=== PATIENT | male | born 1995 | race Two or more races ===

== ENCOUNTER 2022-03-01 11:08 | Emergency (ER) | payer OTHER, SELFPAY ==
[2022-03-01 11:12] VITALS: BP 146/75; PULSE 99; RESP 20; TEMP 36.6; O2SAT 100
--- NOTE | 2022-03-01 12:24 | ED.ALLEREA ---
HPI - Allergic Reaction General Chief complaint: Allergic Reaction Stated complaint: rash to arms and face Time Seen by Provider: 03/01/22 12:05 Source: patient Mode of arrival: ambulatory Limitations: no limitations History of Present Illness HPI narrative: Patient is 26 years old male presents with skin rash on the face and at the back of the elbow bilaterally started 2 weeks ago. Been seen by his family physician numerous times, was given antibiotic without any improvement. Patient reports slight itching and burning sensation. Patient denies having similar symptoms in the past. He denies any fever, chills, nausea, vomiting or exposure to anything unusual. Patient works outdoors. Related Data Home Medications Medication Instructions Recorded Confirmed sulfamethoxazole-trimethoprim 800 BID 03/01/22 Allergies Allergy/AdvReac Type Severity Reaction Status Date / Time No Known Allergies Allergy Verified 03/01/22 11:19 Review of Systems Review of Systems: CONSTITUTIONAL: Denies fever, chills, or sweats. EYES: Denies visual changes, redness, or discharge. ENT: Denies rhinorrhea, congestion, sore throat, or otalgia. CARDIOVASCULAR: Denies chest pain, palpitations, or edema. RESPIRATORY: Denies cough or dyspnea. GASTROINTESTINAL: Denies abdominal pain, nausea, vomiting, or diarrhea. GENITOURINARY: Denies dysuria or hematuria. SKIN: Denies rash or itching. MUSCULOSKELETAL: Denies back pain, joint pain, or myalgia. NEUROLOGIC: Denies headache, numbness, or weakness. PSYCHIATRIC: Denies anxiety or depression. Exam Narrative: General appearance: Well-developed, well-nourished Skin: Papular, pustular rash, butterfly shape on the face, and at the back of the elbow bilaterally Head: Normocephalic, nontraumatic Eyes: Clear conjunctiva ENT: Oropharynx normal, ears normal, nose normal Neck: Supple, nontender Chest and respiratory: Airway patent, no respiratory distress, no accessory muscle use Heart: Regular rate/rhythm Abdomen: Soft, nontender, no organomegaly, quiet bowel sounds Vascular: Normal peripheral pulses, normal capillary refill. Musculoskeletal: Normal range of motion, nontender back Neurologic: Alert and oriented ?3, [employer] is normal as tested, no gross motor deficit Course Course Emergency Course: Stable Vital Signs Vital signs: Vital Signs Temperature 36.6 C 03/01/22 11:12 Pulse Rate 99 03/01/22 11:12 Respiratory Rate 20 03/01/22 11:12 Blood Pressure 146/75 H 03/01/22 11:12 Pulse Oximetry 100 03/01/22 11:12 Temperature 36.6 C 03/01/22 11:12 Pulse Rate 99 03/01/22 11:12 Respiratory Rate 20 03/01/22 11:12 Blood Pressure 146/75 H 03/01/22 11:12 Pulse Oximetry 100 03/01/22 11:12 MDM - Allergic Reaction MDM Narrative Medical decision making narrative: Acne rosacea, psoriasis, versus allergic reaction is my concern. My plan to discharge patient on metronidazole gel, doxycycline and prednisone. And to call Dr. Mcnair for appointment Differential Diagnosis Differential diagnosis: Likely allergic reaction and other (Rosacea, psoriasis) Critical Care Time Critical Care Time Critical Care Time: No Discharge Plan Discharge Clinical Impression: Acne rosacea Allergic reaction Qualifiers: Encounter type: initial encounter Qualified Code(s): T78.40XA - Allergy, unspecified, initial encounter Patient Disposition: Home, Self-Care Condition: Stable Instructions: Antibiotic Form, Dermatitis (ED) Additional Instructions: Return if symptoms are worsening , call your family physician/rn coronary care unit for appointment, take Tylenol as as needed for aches and pain, continue home medications. Pre
== END 2022-03-01 13:01 | disposition home or self-care (01) ==
PROVIDERS: Emergency Provider Emergency Medicine; PCP Internal Medicine
DX: L71.9 Rosacea, unspecified (principal); T78.40XA Allergy, unspecified, initial encounter
CPT/HCPCS: 99283

== ENCOUNTER 2022-08-10 06:06 | Emergency (ER) | payer OTHER, SELFPAY ==
--- NOTE | ~2022-08-10 | CT_ITS ---
EXAMINATION: CT abdomen pelvis w con DATE: 08/10/2022 07:35 INDICATION: Lower abdominal pain, vomiting and diarrhea TECHNIQUE: Computed tomography (CT) of the abdomen and pelvis was performed without intravenous contr ast. The dose-length product was 322.49 mGy-cm. Automated exposure control and iterative reconstructi on technique were employed. COMPARISON: CT dated 02/10/2011. FINDINGS: Lung bases are unremarkable. Heart size normal. The liver, spleen, pancreas, adrenal glands and kidneys are unremarkable. Gallbladder is present. No significant vascular abnormality. There is retroaortic left renal vein. Gallbladder is present. No free air or free fluid. There are mildly thic kened proximal small bowel loops, suspicious for enteritis. No lymphadenopathy. No aneurysm. No evide nce for hernia. There is a small sclerotic lesion in the proximal aspect of the right femur, likely b [place]. Mild lumbar spondylosis. IMPRESSION: 1. Mildly thickened proximal small bowel loops, suspicious for enteritis. Reviewed, dictated and finalized at location B.
[2022-08-10 06:07] VITALS: BP 155/79; PULSE 63; RESP 18; TEMP 36.2; O2SAT 99
[2022-08-10 07:02] LABS: Basophils Percent Auto 0.3 % (0.2-1.2); Eosinophils Absolute Auto 0.1 K/mm3 (0-0.3); Eosinophils Percent Auto 0.9 % (0-4.4); Hemoglobin 14.2 g/dL (14.0-18.0); Immature Granulocyte Absolute 0.01 K/mm3 (0.00-0.031); Immature Granulocyte Percent A 0.2 % (0-0.5); Lymphocytes Absolute Auto 1.55 K/mm3 (0.9-3.2); Lymphocytes Percent Auto 26.5 % (18.3-44.2); Mean Corpuscular Volume 81.7 fl (80-100); Mean Platelet Volume 10.8 fl (7.4-10.4); Monocytes Absolute Auto 0.6 K/mm3 (0.1-0.6); Monocytes Percent Auto 9.4 % (2.6-8.5); Neutrophils Absolute Auto 3.7 K/mm3 (1.3-6.7); Neutrophils Percent Auto 62.7 % (45.5-73.1); Platelet Count Result 204 k/mm3 (150-375); Red Blood Count 5.26 M/mm3 (4.6-6.20); Red Cell Distribution Width 14.1 % (11.5-14.5); White Blood Count 5.9 K/mm3 (4.5-10.0)
[2022-08-10 07:13] LABS: Alanine Aminotransferase 29 U/L (6-50); Albumin Level 4.8 g/dL (3.5-5.1); Alkaline Phosphatase 61 U/L (38-126); Anion Gap 9 mmol/L (8-16); Aspartate Amino Transferase 23 U/L (17-59); Bilirubin,Total 0.4 mg/dL (0.2-1.3); Blood Urea Nitrogen 17 mg/dL (9-20); Calcium 9.1 mg/dL (8.4-10.2); Carbon Dioxide 28 mmol/L (22-30); Chloride 103 mmol/L (98-107); Estimated CRCL calculation 103 ml/min; Estimated Glomerular Filt Rate > 60; Glucose 102 mg/dL (65-110); Potassium 3.7 mmol/L (3.4-5.0); Sodium 140 mmol/L (137-145)
[2022-08-10 07:14] LABS: Lactic Acid Reflex 0.9 mmol/L (0.7-2.0)
--- NOTE | 2022-08-10 07:17 | ED.ABDPAIN ---
HPI - Abdominal Pain General Chief Complaint: Abdominal Pain Stated Complaint: abd pain Time Seen by Provider: 08/10/22 07:01 History of Present Illness HPI narrative: Pt presents with crampy lower abdominal pain and diarrhea for three days. Pt did have vomiting at first but this has improved but the diarrhea has persisted. Pt denies fever or recent antibiotic usage or camping trips. Pt has some blood on tissue but thinks it is from excessive wiping. Pt was up all night due to pain and frequent trips to bathroom. Related Data Home Medications Medication Instructions Recorded Confirmed sulfamethoxazole 800 800 BID 03/01/22 mg-trimethoprim 160 mg tablet Allergies Allergy/AdvReac Type Severity Reaction Status Date / Time No Known Allergies Allergy Verified 08/10/22 08:38 Review of Systems Review of Systems: All systems reviewed & are unremarkable except as noted in HPI and below PMFSH Family History Family History (System 08/10/22 @ 08:38 by Beverley Wolf) Other Diabetes mellitus Family history of elevated blood lipids Hypertension Social History Social History (System 08/10/22 @ 08:38 by Beverley Wolf) Smoking status: Never smoker Exam Const: General: healthy appearing Nutritional Appearance: well nourished Orientation/consciousness: patient oriented x3 Limitations: no limitations HENMT: Mouth: Yes moist mucous membranes Eyes: Conjunctivae: conjunctivae normal EOM: EOMs intact bilaterally Resp: Effort & Inspection: normal respiratory effort Auscultation: clear to auscultation bilaterally Cardio: Rate: regular rate Rhythm: regular rhythm GI: GI Palp: Yes Soft to palpation and Yes Tenderness to palpation present (GI) (mild lower abdominal tenderness) Auscultation: normal bowel sounds Skin: General skin exam: normal color Rashes: no rashes Wounds: no wounds Neuro: General: patient oriented x3, moves all extremities and no focal motor deficits Cranial nerves: Yes Nystagmus not present Speech: normal speech Extrem: General: normal to inspection and no clubbing, cyanosis or edema Psych: Mental Status: mental status grossly normal Affect: normal affect Attitude: cooperative Course Vital Signs Vital signs: Vital Signs Temperature 97.2 F L 08/10/22 06:07 Pulse Rate 63 08/10/22 06:07 Respiratory Rate 18 08/10/22 06:07 Blood Pressure 155/79 H 08/10/22 06:07 Pulse Oximetry 99 08/10/22 06:07 Oxygen Delivery Room Air 08/10/22 06:07 Temperature 97.2 F L 08/10/22 06:07 Pulse Rate 58 L 08/10/22 08:30 Respiratory Rate 16 08/10/22 08:30 Blood Pressure 148/81 H 08/10/22 08:30 Pulse Oximetry 99 08/10/22 06:07 Oxygen Delivery Room Air 08/10/22 06:07 MDM - Abdominal Pain Lab Data Result diagrams: 08/10/22 06:33 08/10/22 06:32 Labs: Lab Results 08/10/22 08/10/22 08/10/22 Range/Units 06:32 06:33 06:33 WBC 5.9 (4.5-10.0) K/mm3 RBC 5.26 (4.6-6.20) M/mm3 Hgb 14.2 (14.0-18.0) g/dL Hct 43.0 (42.0-52.0) % MCV 81.7 (80-100) fl MCH 27.0 (26-34) pg MCHC 33.0 (32-36) g/dl RDW 14.1 (11.5-14.5) % Plt Count 204 (150-375) k/mm3 MPV 10.8 H (7.4-10.4) fl Immature Gran % (Auto) 0.2 (0-0.5) % Neut % (Auto) 62.7 (45.5-73.1) % Lymph % (Auto) 26.5 (18.3-44.2) % Mccracken % (Auto) 9.4 H (2.6-8.5) % Eos % (Auto) 0.9 (0-4.4) % Baso % (Auto) 0.3 (0.2-1.2) % Lymph # (Auto) 1.55 (0.9-3.2) K/mm3 Mccracken # (Auto) 0.6 (0.1-0.6) K/mm3 Eos # (Auto) 0.1 (0-0.3) K/mm3 Baso # (Auto) 0.0 (0.0-0.1) K/mm3 Abs Immat Gran (auto) 0.01 (0.00-0.031) K/mm3 Absolute Neuts (auto) 3.7 (1.3-6.7) K/mm3 Absolute Nucleated RBC 0.0 (0.0-0.012) K/mm3 Nucleated RBC % 0.0 (0.0-0.2) % PT (11.1-14.7) Seconds INR APTT (22.3-36.8) SECONDS Sodium 140 (137-145) mmol/L Potassium 3.7 (3.4-5.0) mmol/L Chloride 103 (9
[2022-08-10] MEDS: fentaNYL CITRATE INJ (*CRX) 100 MCG/2 ML VIAL 50 MCG IV PUSH (07:30)
[2022-08-10] MEDS: SODIUM CHLORIDE 0.9% IV 1,000 ML 999 ML IV CONT (07:30)
[2022-08-10] MEDS: ONDANSETRON INJ 4 MG/2 ML VIAL IV PUSH (07:30)
[2022-08-10 07:44] LABS: Appearance Urine Clear (Clear); Bilirubin Urine 1+ (Negative); Blood Urine Negative (Negative); Color Urine Yellow (Yellow); Glucose Urine UA Negative (Negative); Ketones Urine Negative (Negative); Leukocyte Esterase Ur Negative LEU/UL (Negative); Nitrate Urine Negative (Negative); Protein Urine Negative (Negative); pH Urine 7.5 (5.0-9.0)
[2022-08-10 07:48] LABS: INR 1.1; Prothrombin Time 13.9 Seconds (11.1-14.7)
[2022-08-10 07:49] LABS: Partial Thromboplastin Time 32.1 SECONDS (22.3-36.8)
[2022-08-10 07:51] LABS: Mucus Urine Few /lpf; RBC Urine 0-2 /hpf (0-2); Squamous Epithelial Cell Urine Rare /hpf (Few); WBC Urine 0-3 /hpf
[2022-08-10 07:53] LABS: Add Urine Microscopic? YES
[2022-08-10 08:30] VITALS: BP 148/81; PULSE 58; RESP 16
== END 2022-08-10 08:30 | disposition home or self-care (01) ==
PROVIDERS: Emergency Medicine; Emergency Provider Emergency Medicine; PCP Internal Medicine
DX: K52.9 Noninfective gastroenteritis and colitis, unspecified (principal)
CPT/HCPCS: 36415; 74177; 80053; 81001; 83605; 85025; 85610; 85730; 96361; 96374; 96375; 99284; J2405; J3010; J7030; Q9967

== ENCOUNTER 2023-02-27 19:46 | Emergency (ER) | payer OTHER, SELFPAY ==
[2023-02-27 19:49] VITALS: BP 142/73; PULSE 76; RESP 18; TEMP 36.6; O2SAT 99
[2023-02-27 20:14] LABS: Basophils Percent Auto 0.4 % (0.2-1.2); Eosinophils Absolute Auto 0.2 K/mm3 (0-0.3); Eosinophils Percent Auto 4.2 % (0-4.4); Hemoglobin 13.2 g/dL (14.0-18.0); Immature Granulocyte Absolute 0.01 K/mm3 (0.00-0.031); Immature Granulocyte Percent A 0.2 % (0-0.5); Lymphocytes Absolute Auto 1.91 K/mm3 (0.9-3.2); Lymphocytes Percent Auto 41.8 % (18.3-44.2); Mean Corpuscular Hemoglobin 26.6 pg (26-34); Mean Corpuscular Volume 80.6 fl (80-100); Mean Platelet Volume 9.8 fl (7.4-10.4); Monocytes Absolute Auto 0.6 K/mm3 (0.1-0.6); Monocytes Percent Auto 12.7 % (2.6-8.5); Neutrophils Absolute Auto 1.9 K/mm3 (1.3-6.7); Neutrophils Percent Auto 40.7 % (45.5-73.1); Platelet Count Result 255 k/mm3 (150-375); Red Blood Count 4.96 M/mm3 (4.6-6.20); Red Cell Distribution Width 13.7 % (11.5-14.5); White Blood Count 4.6 K/mm3 (4.5-10.0)
[2023-02-27 20:27] LABS: Alanine Aminotransferase 32 U/L (6-50); Albumin Level 4.3 g/dL (3.5-5.1); Alkaline Phosphatase 66 U/L (38-126); Anion Gap 8 mmol/L (8-16); Aspartate Amino Transferase 26 U/L (17-59); Bilirubin,Total 0.4 mg/dL (0.2-1.3); Blood Urea Nitrogen 14 mg/dL (9-20); Calcium 8.4 mg/dL (8.4-10.2); Carbon Dioxide 27 mmol/L (22-30); Chloride 105 mmol/L (98-107); Estimated CRCL calculation 117 ml/min; Estimated Glomerular Filt Rate > 60; Glucose 87 mg/dL (65-110); Lipase 91 U/L (23-300); Potassium 3.9 mmol/L (3.4-5.0); Sodium 140 mmol/L (137-145)
--- NOTE | 2023-02-27 21:05 | PC.NURSE ---
Patient's named called x2 in triage with no answer. Patient not located in triage or triage bathrooms.
== END 2023-02-27 21:05 | disposition left against medical advice (07) ==
LOC: ANHED 21:10
PROVIDERS: Emergency Provider Physician Assistant; PCP Internal Medicine
DX: R10.9 Unspecified abdominal pain (principal)
CPT/HCPCS: 36415; 80053; 83690; 85025; 99199

== ENCOUNTER 2024-03-05 22:01 | Emergency (ER) | payer OTHER, SELFPAY ==
[2024-03-05 22:10] VITALS: BP 167/74; PULSE 107; RESP 15; TEMP 36.7; O2SAT 97
[2024-03-05 22:48] LABS: Influenza A QL RT-PCR Negative (Negative); Influenza B QL RT-PCR Negative (Negative); RSV RNA, RT-PCR Negative (Negative); SARS-CoV-2 RNA PCR Negative (Negative)
--- NOTE | 2024-03-06 00:55 | ED.URI ---
HPI - URI/Sore Throat General Chief Complaint: Upper Respiratory Infection Stated Complaint: URI sx Time Seen by Provider: 03/06/24 00:50 History of Present Illness HPI Narrative: 28-year-old male with no prior medical history presents to emergency department for URI symptoms that started yesterday. Patient states he had a sore throat yesterday but that has since resolved. He is reporting a productive cough, nasal congestion, decreased taste and smell and chills and a low-grade fever of 100? at home. He reports 1 episode of vomiting yesterday that has since resolved as well. Denies diarrhea, vomiting, abdominal pain, dysuria hematuria, chest pain or shortness of breath. Related Data Home Medications Medication Instructions Recorded Confirmed sulfamethoxazole 800 800 BID 03/01/22 mg-trimethoprim 160 mg tablet Allergies Allergy/AdvReac Type Severity Reaction Status Date / Time No Known Allergies Allergy Verified 02/27/23 19:46 Review of Systems Review of Systems: CONSTITUTIONAL: See HPI EYES: Denies visual changes, redness, or discharge. ENT: See HPI CARDIOVASCULAR: Denies chest pain, palpitations, or edema. RESPIRATORY: Denies cough or dyspnea. GASTROINTESTINAL: Denies abdominal pain, nausea, vomiting, or diarrhea. GENITOURINARY: Denies dysuria or hematuria. SKIN: Denies rash or itching. MUSCULOSKELETAL: Denies back pain, joint pain, or myalgia. NEUROLOGIC: Denies headache, numbness, or weakness. PSYCHIATRIC: Denies anxiety or depression. [facility] Family History Family History Other Diabetes mellitus Family history of elevated blood lipids Hypertension Social History Social History Smoking status: Never smoker Exam Narrative: GENERAL: Well-appearing, well-nourished, and in no acute distress. HEAD: Normocephalic, atraumatic. EYES: PERRLA and EOMI. ENT: Nares clear, no rhinorrhea or epistaxis. Mucous membranes moist. Posterior pharynx without erythema or edema. Uvula is midline. No tonsillar hypertrophy. Bilateral TMs are frey and nonbulging with normal canals. NECK: Supple. CHEST: Clear to auscultation. No respiratory distress. No adventitious sounds HEART: Regular rate and rhythm. No murmur heard. Normal peripheral pulses. ABDOMEN: Soft, nontender, nondistended, normal active bowel sounds. EXTREMITIES: Normal range of motion. No edema. SKIN: Warm, dry, no rash. NEURO: No focal deficits. Alert and oriented x3 Course Vital Signs Vital signs: Vital Signs Temperature 98.1 F 03/05/24 22:10 Pulse Rate 107 H 03/05/24 22:10 Respiratory Rate 15 03/05/24 22:10 Blood Pressure 167/74 H 03/05/24 22:10 Pulse Oximetry 97 03/05/24 22:10 Oxygen Delivery Room Air 03/05/24 22:10 Temperature 98.1 F 03/05/24 22:10 Pulse Rate 72 03/06/24 01:13 Respiratory Rate 16 03/06/24 01:13 Blood Pressure 144/82 H 03/06/24 01:13 Pulse Oximetry 97 03/06/24 01:13 Oxygen Delivery Room Air 03/06/24 01:13 MDM - URI/Sore Throat MDM Narrative Medical decision making narrative: 28-year-old male presents emergency department for URI symptoms that started yesterday. See HPI for further history. Triage vital significant for blood pressure 167/74 in tachycardia 107. He is afebrile. He is well appearing on exam, see above. COVID, flu RSV are negative. Lung Sounds are clear. Vital signs have improved. Feel he is safe to be discharged home for treatment of a viral URI with benzonatate and Flonase. Advised follow-up with his PCP, Tylenol and increase hydration. Strict ED return precautions discussed. He is agreeable to plan verbalized understanding. Discharged in stable condition. Lab Data Labs: Lab Results 03/05/24 Range/Units 22:08 Influenza A (RT-PCR) Negative (Negative) Influenza B (RT-PCR) Negative (Negative) RSV (RT-PCR) Negat
[2024-03-06 01:13] VITALS: BP 144/82; PULSE 72; RESP 16; O2SAT 97
== END 2024-03-06 01:25 | disposition home or self-care (01) ==
LOC: ANHED 03-06 01:11
PROVIDERS: Emergency Medicine; Emergency Provider Physician Assistant; PCP Internal Medicine
DX: J06.9 Acute upper respiratory infection, unspecified (principal); Z20.822 Contact with and (suspected) exposure to COVID-19
CPT/HCPCS: 87637; 99283

== ENCOUNTER 2024-10-18 10:41 | Emergency (ER) | payer OTHER, SELFPAY ==
--- OUTSIDE RECORDS SUMMARY | 2024-10-18 12:43 | XMS_ITS | Data Portability ---
Author Organization [facility] Address [address] [place] [address] Care Team Providers Care Environmental Technical Officer Name Role Phone BALDEV MCKEON Primary Care Provider Assessment No assessment recorded. Plan of Treatment Reminders Order Date Submit Date Provider Last Modified By Organization Details Last Modified Time Details Appointments NEW PATIENT 30 2024 09:30A M Néstor Gee MD Not available Not available Not available Lab None recorde d. Referral dermato logist referra l 2021 mireya Rolon MD (Dermatology) , [address], [place], [address], 07/26/2022 15:49:07 dermato logist referra l 2021 JOO Rolon MD (Dermatology) , [address], [place], [address], 08/15/2022 12:15:25 gastroe nterolo gist referra l 2021 [email or web address] Not available 08/24/2022 12:34:[address] referra l [email or web address] [facility], [address] [place], [address], 09/07/2022 12:22:29 Procedures None recorde d. Surgeries None recorde d. Imaging XR, humerus - biceps sore. [email or web address] [facility], [address], [place], [address], 09/07/2022 12:22:27 Medication Orders mupiroc in 2 % topical ointmen t 2021 [facility]88861, [address], [place], [place], [id number], 06/14/2022 17:24:01 metroni dazole 0.75 % topical gel 2021 [facility] #37893, [address], [place], [place], [id number], 06/14/2022 17:23:58 meloxic am 7.5 mg tablet 2021 [facility]09126, [address] [place], [id number], 06/14/2022 17:41:29 lidocai ne 5 % topical cream 2021 [facility]00550, [address] [place], [id number], 08/08/2022 16:02:19 Keppra 500 mg tablet 2021 [facility]73018, [address] [place], [id number], 08/17/2022 11:31:14 baclofe n 10 mg tablet [facility], [address] [place], [id number], 08/17/2022 11:30:50 meloxic am 7.5 mg tablet 2021 [facility] #94518, [address], [place], [place], [id number], 08/09/2022 17:19:21 lidocai ne 5 % topical cream 2021 [facility] #66444, [address], [place], [place], [id number], 08/09/2022 17:19:21 omepraz ole 40 mg capsule ,delaye d release 2021 [email or web address] #90865, [address], [place], [place], [id number], 08/17/2022 11:44:41 baclofe n 10 mg tablet 2021 [facility] #95117, [address], [place], [place], [id number], 09/06/2022 17:36:32 Patient TargetsNo targets recorded. Patient Instructions Encounter Date Encounter Id Patient Instructions Last Modified By Organization Details Last Modified Time 08/08/2022 [id number] headache: care instructions si Not available 08/08/2022 16:14:24 back care and preventing injuries: care instructions sieh Not available 08/08/2022 16:14:24 09/06/2022 [id number] biceps tendinitis: exercises sieh Not available 09/06/2022 12:48:34 Reason for Referral Crate Liner Referral for L esion of skin of face Referring Physician: Baldev Mckeon, Internal Medicine, Encounter Date: 06/14/2022 Technical Supervisor Referral for Chronic abdominal pain Referring Physician: Baldev Mckeon, Internal Medicine, Encounter Date: 08/08/2022 Crate Liner Referral for L esion of skin of face Referring Physician: Baldev Mckeon, Internal Medicine, Encounter Date: 08/08/2022 Physical Therapist Referral for Biceps tendinitis Referring Physician: Baldev Mckeon, Internal Medicine, Encounter Date: 09/06/2022 Results Created Date Observation Date Name Description Value Unit Range Abnormal Flag Note LastModifiedBy Organization Detail LastModifiedTime 08/10/2008/10/2022 CT, abdom en + pelvi s, w/o contr ast No observ ation record ed. [address], [place], [address], 08/10/2022 10:48:26 09/06/2009/06/2022 XR, humer us No observ ation record ed. [facility] [address] [place], [address], 09/15/2022 09:49:40 Result Notes None recorded. Problems No Known Problems Procedures Surgical History Date Name Laterality Status Provider Name and Address Organization Details Recorded Time 9 Tonsillectomy completed Susanne Quiñones MA [facility] 07/13/2018 14:22:16 Imaging Results Imaging Date Name Status LastModified by Organiz ation Details LastModified Time 08/10/2022 CT, abdomen + pelvis, w/o contrast completed [address], [place], [address], 08/10/2022 10:48:26 09/06/2022 XR, humerus completed [facility] [address] [place], [address], 09/15/2022 09:49:40 Procedure Notes None recorded. Medical Equipment None Reported. Allergies No known drug allergies Medications Name Sig Start Date Stop Date Status Note LastModified by Organization Details LastModified Time clindamycin HCl 300 mg capsule TAKE 1 CAPSULE BY MOUTH EVERY 6 HOURS AFTER MEALS FOR 10 DAYS 06/14 completed Not Available Not Available Not Available azithromyci n 250 mg tablet TK 2 TS PO ON DAY 1, THEN TK 1 T PO D FOR 4 DAYS 02/10 completed Not Available Not Available Not Available lidocaine 5 % topical cream Apply 1 applicati on 4 times a day by topical route as needed for 30 days. 2021 active Not Available Not Available Not Avai lable levetiracet am 500 mg tablet TAKE 1 TABLET BY MOUTH EVERY DAY DIRECTED 2022 active Not Available Not Available Not Avai lable famotidine 40 mg tablet TAKE 1 TABLET BY MOUTH EVERY DAY 06/14 completed Not Available Not Available Not Available prednisone 20 mg tablet TAKE 2 TABLETS BY MOUTH TWICE DAILY 06/14 completed Not Available Not Available Not Available diphenoxyla te-atropine 2.5 mg-0.025 mg tablet TAKE 1 TABLET BY MOUTH THREE TIMES DAILY NEEDED FOR DIARRHEA 08/17 completed Not Available Not Available Not Available omeprazole 40 mg capsule,del ayed release Take 1 capsule every day by oral route before meals for 30 days. active Not Available Not Available No t Available meloxicam 7.5 mg tablet TAKE 1 TABLET BY MOUTH EVERY DAY AFTER MEALS active Not Available Not Available No t Available Questran 4 gram powder for susp in a packet Take 1 packet 3 times a day by oral route as needed for 5 days. 2020 active Not Available Not Available Not Avai lable amitriptyli ne 10 mg tablet TAKE 1 TABLET BY MOUTH EVERY DAY NEEDED 02/25 completed Not Available Not Available Not Available baclofen 10 mg tablet TAKE 1 TABLET BY MOUTH THREE TIMES DAILY NEEDED active Not Available Not Available No t Available butalbital 50 mg-acetamin ophen 325 mg-caffeine 40 mg-codeine 30 mg cap 06/14 completed Not Available Not Available Not Available omeprazole 20 mg capsule,del ayed release TAKE 1 CAPSULE BY MOUTH EVERY DAY 06/18 completed Not Available Not Available Not Available mupirocin 2 % topical ointment 06/14 completed Not Available Not Available Not Available ondansetron 4 mg disintegrat ing tablet DISSOLVE 1 TABLET ON THE TONGUE EVERY 8 HOURS NEEDED FOR NAUSEA OR VOMITING 08/17 completed Not Available Not Available Not Available metronidazo le 0.75 % topical gel APPLY TOPICALLY TO THE AFFECTED AREA TWICE DAILY 06/14 completed Not Available Not Available Not Available Bactrim DS 800 mg-160 mg tablet Take 1 tablet every 12 hours by oral route after meals for 10 days. 06/14 completed Not Available Not Available Not Available topiramate 50 mg tablet TAKE 1 TABLET BY MOUTH TWICE DAILY NEEDED 06/14 completed Not Available Not Available Not Available Ear Wax Removal System 6.5 % ear pack Instill 1 mL as needed by otic route as needed for 3 days. 01/21 completed Not Available Not Available Not Available lidocaine 5 % topical ointment active Not Available Not Available Not Available ID NOW COVID-19 Test Kit TEST DIRECTED 02/25 completed Not Available Not Available Not Available COVID-19 test specimen collection TEST DIRECTED TODAY 02/25 completed Not Available Not Available Not Available Vitals Date Recorded Body height Body mass index (BMI) Body weight Body temperature Oxygen saturation Oxygen saturation in Arterial blood by Pulse oximetry Heart rate Systolic blood pressure Diastolic blood pressure Provider Name and Address Organization Details Last Updated DateTime 2 180.34 cm 25.9 kg/m2 07862.1 8 g 98.5 [degF] 98 % 98 % 82 /min 130 mm[Hg] 76 mm[Hg] Indio Ozuna [place] [facility] 2 17:27:50 Date Recorded Body height Body mass index (BMI) Body weight Body temperature Oxygen saturation Oxygen saturation in Arterial blood by Pulse oximetry Heart rate Systolic blood pressure Diastolic blood pressure Provider Name and Address Organization Details Last Updated DateTime 2 180.34 cm 25.4 kg/m2 37205.0 9 g 98.3 [degF] 99 % 99 % 62 /min 130 mm[Hg] 86 mm[Hg] Indio Ozuna [place] [facility] 2 16:04:44 Date Recorded Body height Body mass index (BMI) Body weight Heart rate Respiratory rate Oxygen saturation Oxygen saturation in Arterial blood by Pulse oximetry Body temperature Systolic blood pressure Diastolic blood pressure Provider Name and Address Organization Details Last Updated DateTime 2 180.34 cm 25.5 kg/m2 13019.4 g 80 /min 18 /min 96 % 96 % 96.8 [degF] 120 mm[Hg] 66 mm[Hg] Bella YASMIN Purvis [place] [facility] 2 11:30:12 Date Recorded Body height Body mass index (BMI) Body weight Oxygen saturation Oxygen saturation in Arterial blood by Pulse oximetry Heart rate Systolic blood pressure Diastolic blood pressure Provider Name and Address Organization Details Last Updated DateTime 2 180.34 cm 25.8 kg/m2 84153.5 9 g 98 % 98 % 73 /min 128 mm[Hg] 70 mm[Hg] Mai Quiroga [place] [facility] 2 12:14:36 Social History Question Answer Notes LastModified by Organizat ion Details LastModified Time Tobacco Smoking Status Never Smoker Susanne Quiñones MA [facility], [place] - [facility] 07/13/2018 14:20:35 Do You Have An Advance Directive? No Information n ot available 07/13/2018 What Is Your Level Of Alcohol Consumption? None Information not available 07/13/2018 Are You Blind Or Do You Have Difficulty Seeing? No Information n ot available 02/10/2022 What Is Your Level Of Caffeine Consumption? Moderate Coffee Information not available 02/10/2022 How Much Tobacco Do You Chew? None Information not available 07/13/2018 In The 14 Days Before Symptom Onset, Have You Had Close Contact With A Laboratory-confirm ed COVID-19 While That Case Was Ill? No Information n ot available 06/18/2021 In The 14 Days Before Symptom Onset, Have You Had Close Contact With A Person Who Is Under Investigation For COVID-19 While That Person Was Ill? No Information not available 06/18/2021 Have You Been To An Area Known To Be High Risk For COVID-19? Yes Information not available 06/18/2021 Are You Deaf Or Do You Have Serious Difficulty Hearing? No Information not available 02/10/2022 What Type Of Diet Are You Following? REGULAR Information n ot available 07/13/2018 Which Illicit Or Recreational Drugs Have You Used? 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 No Information not available 06/18/2021 Hard Of Hearing Or Deaf In One Or Both Ears? No Information not available 07/13/2018 Legally Blind In One Or Both Eyes? No Information no t available 07/13/2018 Marital Status Single Informatio n not available 07/13/2018 Do You Have A Medical Power Of Tire Mold Tester? No [email or web address] Information not available 08/17/2022 What Was The Date Of Your Most Recent Tobacco Screening? 09/06/2022 [email or web address] Information not available 09/06/2022 Do You Use Your Seat Belt Or Car Seat Routinely? Yes Information not available 02/10/2022 Seat Belts Used Routinely Yes Information not available 07/13/2018 Smoke Alarm In Home Yes Information not available 07/13/2018 Do You Have Smoke And Carbon Monoxide Detectors In Your Home? Yes Information not available 06/18/2021 General Stress Level Low Information not available 07/13/2018 Do You Use Sunscreen Routinely? Yes Information not available 07/13/2018 Sex: Unknown Functional Status Question Answer Note LastModified by Organization D etails LastModified Time Are you able to care for yourself? Yes Information not available 02/10/2022 What is your exercise level? Moderate Information not available 07/13/2018 Mental Status None recorded. Family History Relationship Description Onset Age of this Age Resolved Age Notes LastModified by Organization Details LastModified Time Mother Diabetes mellitus HTN, cb-rma Not available 07/13/2018 14:20:28 Medical History Condition Response Coronary Artery Disease N High Blood Pressure Y COPD N Depression N Anxiety Disorder N Cancer N Liver Disease N Headaches N Kidney or Bladder Problems N Thyroid Problems N GI Problems N Diabetes N Seizures/Epilepsy N Asthma N Hepatitis N Heart Failure N Past Encounters Encounter ID Performer Location Encounter Start Date Encounter Closed Date Diagnosis/Indication Diagnosis SNOMED-CT Code Diagnosis ICD10 Code [id number] ATTILA Pugh (Peds) [address] [place] [address] 0 08/20/2015 11:07:50 08/25/2015 12:54:28 [id number] MD Jaron Gomez (Adult Med) [address] [place] [address]98[address]962 0 07/13/2018 14:05:04 07/16/2018 10:55:27 Paronychia of toe 608291351 L03.244 [id number] MD Jaron Gomez (Adult Med) [address] [place] [address]653[address]203 0 07/20/2018 17:02:14 07/24/2018 12:39:08 Paronychia of toe 666456618 L03.076 [id number] MD Jaron Gomez (Adult Med) [address] [place] [address]18[address]960 0 05/27/2021 17:07:04 05/31/2021 14:24:28 Acute diarrhea 922288113 R19.7 [id number] MD Jaron Gomez (Adult Med) [address] [place] [address] 25085-036 0 06/18/2021 14:04:39 06/21/2021 12:51:45 Acute diarrhea 583738097 R19.7 [id number] MD Jaron Gomez (Adult Med) [address] [place] [address] 94652-962 0 06/24/2021 08:10:31 06/24/2021 23:00:25 Stomach cramps 18923482 R10.9 [id number] MD Jaron Gomez (Adult Med) [address] [place] [address] 87027-526 0 07/19/2021 12:14:17 07/20/2021 09:46:55 Diarrhea 42206012 R19.7 Migraine 44530821 G43.90 [id number] MD Jaron Gomez (Adult Med) [address] [place] [address] 30286-395 0 09/29/2021 14:15:13 10/01/2021 12:34:28 Respiratory tract infection 805256265 J98.8 Impacted c erumen of bilateral ears 6674389112 785940 H61.23 Chronic he adache disorder 992040225 G44.89 Chronic ab dominal pain 178138056 R10.9 [id number] Stew Wilson DO [facility] [address] [place] [address] 11/10/2021 15:14:39 11/11/2021 10:36:37 Abdominal pain 44210620 R10.9 [id number] MD Jaron Gomez (Adult Med) [address] [place] [address] 12399[address] 0 01/21/2022 12:31:48 01/24/2022 11:12:50 Acute sinusitis 87990201 J01.90 Migraine 51672755 G43.90 [id number] MD Jaron Gomez (Adult Med) [address] [place] [address] 81620-535 0 02/10/2022 16:31:43 02/11/2022 11:03:38 Cellulitis of face 771373349 L03.211 Migraine 95806049 G43.90 [id number] MD Jaron Gomez (Adult Med) [address] [place] [address] 12051-980 0 02/25/2022 17:14:16 02/28/2022 14:34:31 Cellulitis of face 061052577 L03.957 [id number] MD Jaron Gomez (Adult Med) [address] [place] [address]76-204 0 03/17/2022 16:25:18 03/18/2022 14:25:58 Cellulitis of face 613888653 L03.975 [id number] MD Jaron Gomez (Adult Med) [address] [place] [address]3300[address] 0 06/14/2022 17:08:47 06/15/2022 11:55:13 Pain of bilateral knee regions 8014071067 47101 M25.561 M25.562 Lesion of skin of face 5112523513 06 L98.9 [id number] MD Jaron Gomez (Adult Med) [address] [place] [address] 08/08/2022 15:38:37 08/09/2022 10:16:36 Headache 98919908 R51.9 Low back pain 295156909 M54.50 Chronic ab dominal pain 404110403 R10.9 Pain of bi lateral knee regions 4961797016 72759 M25.561 M25.562 Lesion of skin of face 3576272996 06 L98.9 [id number] ELIZABETH FARRAR [facility] [address] [place] [address] 08/17/2022 11:18:07 08/22/2022 11:40:12 Epigastric pain 07137572 R10.13 [id number] MD Jaron Gomez (Adult Med) [address] [place] [address] 09/06/2022 12:01:08 09/07/2022 12:22:27 Biceps tendinitis 703169703 M75.21 Health Concerns Section Related Observation LastModified by Organization Detai ls LastModified Time None Recorded Concern Status LastModified by Organization Details LastModified Time None Recorded Advance Directives Directive N: Payers Encounter Date Sequence Insurance Name Policy Number Policy Lowe Covered Member ID Lowe Member ID Guarantor Name 03/17/2022 1 [facility] ON OR AFTER 05/06/21 (MEDICAID REPLACEMENT - HMO) Doug Villalta [id number] Doug Villalta 06/14/2022 1 [facility] ON OR AFTER 05/06/21 (MEDICAID REPLACEMENT - HMO) Doug Villalta [id number] Doug Villalta 08/08/2022 1 [facility] ON OR AFTER 05/06/21 (MEDICAID REPLACEMENT - HMO) Doug Villalta [id number] Doug Villalta 08/17/2022 1 [facility] ON OR AFTER 05/06/21 (MEDICAID REPLACEMENT - HMO) Doug Villalta [id number] Doug Villalta 09/06/2022 1 [facility] ON OR AFTER 05/06/21 (MEDICAID REPLACEMENT - HMO) Doug Villalta [id number] Duog Villalta Notes Date Note Type Note Provider Name and Address Organization Details Recorded Time 03/17/2022 text/html Phone visit, due to running the fever, he agreed and under stood this phone visit. the face still red and wants steroid renewed, but due the concern of infection , discussed with patient, this office is reluctant to prescribe steroid at this time, rather will add abs ointment and refill metronidazole cream, he has appointment with specialist on 04-15-2022 in [facility]. NKDA. Baldev Mckeon MD Attn: Accounting,[address] [place], [address], [facility] 03/17/2022 17:49:46 06/14/2022 text/html Office visit, NK DA. knees pain for 2 days , works as a maintenance , no fever, and abdomenal cramp yesterday , he missed work yesterday. No injury. Baldev Mckeon MD Attn: [address] [place], [address], [facility] 06/14/2022 18:02:06 08/08/2022 text/html Office. !. Headache. 2. Lower back pain. 3. Wants to return to work tomorrow. 4. Chronic abdominal cramp waiting GI referral 5. Rashes of face, [id number] dermatology referral. Baldev Mckeon MD Attn: Accounting,[address] [place], [address], [facility] 08/09/2022 18:18:19 08/17/2022 text/html Patient presents today for follow up of abdominal pain. Points to epigastric region and describes it as squeezing, tight, and burning. Pain is intermittent. Sometimes has nausea, but not as often as prior. Patient states he's been eating better and has cut out a lot of meat. Not drinking as much soda. Working on increasing water. Patient cannot remember if famotidine in past helped. CT scan ER 08/09/2022 showed enteritis. Vomiting and diarrhea has resolved. ELIAZBETH FARRAR [address], [place], [address], [facility] 08/17/2022 11:45:27 09/06/2022 text/html Office visit, EBONY DA. 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 Baldev Mckeon MD Attn: Accounting,[address] [place], [address], [facility] 09/06/2022 17:38:39
--- OUTSIDE RECORDS SUMMARY | 2024-10-18 12:43 | XMS_ITS | Continuity of Care Document ---
Author Organization [facility] Address [address] [place] [address] [address] [place] [address] Phone Care Team Providers Care Frame Aligner Name Role Phone Laurence Roth Unavailable Unavailable Advance Directives Directive Yes / No Effective Date File Name No Information Encounters Encounter Description Practice Location Reason(s) For Visit Diagnoses Date Provider Providers Copied on Encounter [facility], [id number] [place] [address] [address], [place], [place], [id number], [place] tel:[phone] SEC [facility] No Information 2 0-200 2 Ira Dang. [address] [facility] , [address], [place], [address], [place]. tel:[phone] Family History Family Member Type Diagnosis Age At Onset No Information Payers Payer name Insurance type Covered libertarian ID Authoriza tion(s) Medicaid [facility] [id number] Social History Type Description Quantity Date Captured Comments Sex Male Smoking Status No Information Chief Complaint And Reason For Visit No Information Reason For Referral Reason For Referral No Information History Of Present Illness Encounter Date Complaint History Of Prese nt Illness No Information Functional Status Date Functional Assessmen t No Information Instructions Date Instruction Additional Infor mation No Information Assessments Type Assessment Date No Information Patient Care Teams Name Effective Dates (start - stop) Status Members No Information
== END 2024-10-18 11:41 | disposition left against medical advice (07) ==
PROVIDERS: Emergency Provider Physician Assistant; PCP Internal Medicine
DX: Z53.21 Procedure and treatment not carried out due to patient leaving prior to being seen by health care provider (principal)
CPT/HCPCS: 99199

== ENCOUNTER 2025-03-01 20:54 | Emergency (ER) | payer OTHER, SELFPAY ==
--- OUTSIDE RECORDS SUMMARY | 2025-03-01 20:56 | XMS_ITS | Data Portability ---
Author Organization [facility] Address [address] [place] [address] Care Team Providers Care Pricing Consultant Name Role Phone BALDEV MCKEON Primary Care Provider Assessment No assessment recorded. Plan of Treatment Reminders Order Date Submit Date Provider Last Modified By Organization Details Last Modified Time Details Appointments NEW PATIENT 30 2024 07:30A M ALEX RITTER PA-C Not available Not available Not available Lab None recorde d. Referral physica l therapi st referra l [address] Physical, Occupational & Speech Medicine & Rehab, [address] [place], [address], 09/07/2022 12:22:29 dermato logist referra l 2021 JOO Rolon MD (Dermatology) , [address], [place], [address], 08/15/2022 12:15:25 gastroe nterolo gist referra l 2021 022 [email or web address] Not available 08/24/2022 12:34:47 dermato logist referra l 2021 022 mireya Rolon MD (Dermatology) , [address], [place], [address], 07/26/2022 15:49:07 Procedures None recorde d. Surgeries None recorde d. Imaging XR, humerus - biceps sore. 2021 [email or web address] [facility] Physical, Occupational & Speech Medicine & Rehab, [address] [facility], [place], [address], 09/07/2022 12:22:27 Medication Orders baclofe n 10 mg tablet 2021 [facility] #45183, [address], [place], [place], [id number], 09/06/2022 17:36:32 omepraz ole 40 mg capsule ,delaye d release [id number] [facility]01565, [address], [place], [place], [id number], 08/17/2022 11:44:41 Keppra 500 mg tablet 2021 [facility]64399, [address], [id number], 08/17/2022 11:31:14 baclofe n 10 mg tablet 2021 [facility] #60348, [address], [id number], 08/17/2022 11:30:50 meloxic am 7.5 mg tablet 2021 [facility] #51419, [address], [id number], 08/09/2022 17:19:21 lidocai ne 5 % topical cream 2021 [facility] #53196, [address], [id number], 08/09/2022 17:19:21 meloxic am 7.5 mg tablet 2021 [facility] #28086, [address], [place], [place], [id number], 06/14/2022 17:41:29 lidocai ne 5 % topical cream 2021 [facility] #93205, [address], [place], [place], [id number], 08/08/2022 16:02:19 mupiroc in 2 % topical ointmen t 2021 [facility] #27166, [address], [place], [place], [id number], 06/14/2022 17:24:01 metroni dazole 0.75 % topical gel 2021 [facility] #95367, [address], [place], [place], [id number], 06/14/2022 17:23:58 Patient TargetsNo targets recorded. Patient Instructions Encounter Date Encounter Id Patient Instructions Last Modified By Organization Details Last Modified Time 08/08/2022 [id number] headache: care instructions [facility] Not available 08/08/2022 16:14:24 back care and preventing injuries: care instructions si Not available 08/08/2022 16:14:24 09/06/2022 [id number] biceps tendinitis: exercises [facility] Not available 09/06/2022 12:48:34 Reason for Referral Software Engineering Supervisor Referral for L esion of skin of face Referring Physician: Baldev Mckeon, Internal Medicine, Encounter Date: 06/14/2022 Research Tech Referral for Chronic abdominal pain Referring Physician: Baldev Mckeon, Internal Medicine, Encounter Date: 08/08/2022 Software Engineering Supervisor Referral for L esion of skin of [...] contr ast No observ ation record ed. [facility] [address] [facility] [address], [place], [address], 08/10/2022 10:48:26 09/06/20 22 09/06/2022 XR, humer us No observ ation record ed. [facility] Add On Lab Orders [address] [place], [address], 09/15/2022 09:49:40 11/23/19 25 11/23/2024 XR, knee No observ ation record ed. [facility] [address] [place], [address], 11/26/2024 13:27:08 Result Notes None recorded. Problems No Known Problems Procedures Surgical History Date Name Laterality Status Provider Name and Address Organization Details Recorded Time 9 Tonsillectomy completed Susanne Quiñones MA [facility] - [facility] 07/13/2018 14:22:16 Imaging Results Imaging Date Name Status LastModified by Organiz ation Details LastModified Time 08/10/2022 CT, abdomen + pelvis, w/o contrast completed [facility] [address] [facility] [address], [place], [address], 08/10/2022 10:48:26 09/06/2022 XR, humerus completed [facility] Orders [address] [place], [address], 09/15/2022 09:49:40 11/23/2024 XR, knee completed oajao [facility] [address], [place], [address], 11/26/2024 13:27:08 Procedure Notes None recorded. Medical Equipment None Reported. Allergies No known drug allergies Medications Name Sig Start Date Stop Date Status Note LastModified by Organization Details LastModified Time cyclobenzap rine 10 mg tablet TAKE 1 TABLET BY MOUTH AT BEDTIME FOR 8 TO [address]. [address] OR OPERATE MACHINERY WHILE TAKING CYCLOBENZ APRINE active Not Available Not Available No t Available clindamycin HCl 300 mg capsule TAKE 1 [...] completed Not Available Not Available Not Available acetaminoph en 300 mg-codeine 30 mg tablet TAKE 1 TABLET BY MOUTH EVERY 6 HOURS NEEDED active Not Available Not Available No t Available omeprazole 40 mg capsule,del ayed release [...] Not Available Not Available No t Available benzonatate 100 mg capsule TAKE 1 CAPSULE BY MOUTH EVERY 8 HOURS NEEDED active Not Available Not Available No [...] DISSOLVE 1 TABLET ON THE TONGUE EVERY 6 HOURS NEEDED FOR NAUSEA OR VOMITING active Not Available Not Available No t Available metronidazo le 0.75 % topical gel APPLY TOPICALLY TO THE AFFECTED AREA TWICE DAILY 06/14 completed Not Available Not Available Not Available naproxen 500 mg tablet TAKE 1 TABLET BY MOUTH EVERY 12 HOURS WITH FOOD active Not Available Not Available No t Available Bactrim DS 800 mg-160 mg tablet [...] and Address Organization Details Last Updated DateTime 180.34 cm 25.9 kg/m2 96195.1 8 g 98.5 [degF] 98 % 98 % 82 /min 130 mm[Hg] 76 mm[Hg] Indio Ozuna MA [facility] 2 17:27:50 Date Recorded Body height Body mass index (BMI) Body weight Body temperature Oxygen saturation Oxygen saturation in Arterial blood by Pulse oximetry Heart rate Systolic blood pressure Diastolic blood pressure Provider Name and Address Organization Details Last Updated DateTime 2 180.34 cm 25.4 kg/m2 75149.0 9 g 98.3 [degF] 99 % 99 % 62 /min 130 mm[Hg] 86 mm[Hg] Indio Ozuna MA [facility] 2 16:04:44 Date Recorded Body height Body mass index (BMI) Body weight Heart rate Respiratory rate Oxygen saturation Oxygen saturation in Arterial blood by Pulse oximetry Body temperature Systolic blood pressure Diastolic blood pressure Provider Name and Address Organization Details Last Updated DateTime 2 180.34 cm 25.5 kg/m2 08776.4 g 80 /min 18 /min 96 % 96 % 96.8 [degF] 120 mm[Hg] 66 mm[Hg] Bella Purvis LPN [facility] 2 11:30:12 Date Recorded Body height Body mass index (BMI) Body weight Oxygen saturation Oxygen saturation in Arterial blood by Pulse oximetry Heart rate Systolic blood pressure Diastolic blood pressure Provider Name and Address Organization Details Last Updated DateTime 2 180.34 cm 25.8 kg/m2 88764.5 9 g 98 % 98 % 73 /min 128 mm[Hg] 70 mm[Hg] Mai Quiroga MA [facility] 2 12:14:36 Social History Question Answer Notes LastModified by Organizat ion Details LastModified Time Tobacco Smoking Status Never Smoker Susanne Quiñones MA [facility], [facility] 07/13/2018 14:20:35 Do You Have An [...] t available 07/13/2018 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 No Information not available 06/18/2021 Hard Of Hearing Or Deaf In One Or Both Ears? No Information not available 07/13/2018 Legally Blind In One Or Both Eyes? No Information no t available 07/13/2018 Marital Status Single Informatio n not available 07/13/2018 Do You Have A Medical Power Of Bitumen Plant Operator? No [email or web address] Information not available 08/17/2022 What [...] Artery Disease N High Blood Pressure Y Kidney or Bladder Problems N Thyroid Problems N GI Problems N COPD N Depression N Diabetes N Anxiety Disorder N Seizures/Epilepsy N Cancer N Asthma N Hepatitis N Liver Disease N Headaches N Heart Failure N Past Encounters Encounter ID Performer Location Encounter Start Date Encounter Closed Date Diagnosis/Indication Diagnosis SNOMED-CT Code Diagnosis ICD10 Code Diagnosis Note [id number] ROSA Pugh_PC Jaron (Peds) [address] [place] [address] 0 08/20/2015 11:07:50 08/25/2015 12:54:28 [id number] MD Jaron Gomez (Adult Med) [address] [place] [address] 0 07/13/2018 14:05:04 07/16/2018 10:55:27 Paronychia of toe 798593396 L03.953 [id number] MD Jaron Gomez (Adult Med) [address] [place] [id number] 07/20/2018 17:02:14 07/24/2018 12:39:08 Paronychia of toe 057432811 L03.039 Discussed with patient, he agreed to continue antibiotic s and will have podiatry referral. [id number] MD Jaron Gomez (Adult Med) [address] [place] [address] 05/27/2021 17:07:04 05/31/2021 14:24:28 Acute diarrhea 778319344 R19.7 ER f/U , abdomen soft.non tender, no mass, active bowel sound, no rebounding , no bruise. Discussed with patient, will order the following tests, he agreed to try next monday. Willing to go back to work tomorrow. [id number] MD Jaron Gomez (Adult Med) [address] [place] [address] 06/18/2021 14:04:39 06/21/2021 12:51:45 Acute diarrhea 150768713 R19.7 ER f/U , abdomen soft.non tender, no mass, active bowel sound, no rebounding , no bruise. Discussed with patient, will order the following tests, he agreed to try next monday. Willing to go back to work tomorrow. 06-18-2021 phone visit, F/U , stomach still has off and on discomfort when bending over to pick remover , diarrhea has stopped. willing to go back to regular duty on 06-22-2021 . [id number] MD Jaron Gomez (Adult Med) [address] [place] [address] 06/24/2021 08:10:31 06/24/2021 23:00:25 Stomach cramps 44250180 R10.9 He has had stomach pain since around April 2021, still persisiten t on and off, willing to go back to regular duty tomorrow, will also refer to GI specialist . [id number] MD Jaron Gomez (Adult Med) [address] [place] [address] 07/19/2021 12:14:17 07/20/2021 09:46:55 Diarrhea 33334402 R19.7 Willing to try med as prescribed in the mean time until he sees GI specialist . Migraine 40090087 G43.90 9 He agreed to try the medication as ordered. [id number] MD Jaron Gomez (Adult Med) [address] [place] [address] 09/29/2021 14:15:13 10/01/2021 12:34:28 Respiratory tract infection 689482434 J98.8 WILL TRY MED ORDERED. Impacted c erumen of bilateral ears 9761386702 466185 H61.23 Will try Wax-Rx , to clean possible wax impaction at home rather been referred to ENT , which will take time . Chronic he adache disorder 565420622 G44.89 will try med as ordered. Chronic ab dominal pain 957984291 R10.9 Unable to contact GI referral. will re-summit. [id number] Stew Wilson DO [facility] [address] [place] [address] 11/10/2021 15:14:39 11/11/2021 10:36:37 Abdominal pain 65432443 R10.9 Will try a H2 sandip if no better EGD [id number] MD Jaron Gomez (Adult Med) [address] [place] [address] 01/21/2022 12:31:48 01/24/2022 11:12:50 Acute sinusitis 30385335 J01.90 Discussed with patient, he agreed for the trail of med as ordered. Migraine 14854703 G43.90 9 He agreed to try the medication as ordered. [id number] MD Jaron Gomez (Adult Med) [address] [place] [address] 02/10/2022 16:31:43 02/11/2022 11:03:38 Cellulitis of face 895721522 L03.211 He agreed to try med as ordered, 02-10-2022 also he is advised to go to ER any time for any concern , he agreed. according to record that he has been tried butabital since july 2021 and nothing had happened before. Migraine 91328759 G43.90 9 He agreed to try the medication as ordered. [id number] MD Jaron Gomez (Adult Med) [address] [place] [address] 02/25/2022 17:14:16 02/28/2022 14:34:31 Cellulitis of face 591564794 L03.211 He agreed to try med as ordered, 02-10-2022 also he is advised to go to ER any time for any concern , he agreed. according to record that he has been tried butabital since july 2021 and nothing had happened before. Advised to go to ER any time for any concern. he agreed. stopped all other medication s. [id number] MD Jaron Gomez (Adult Med) [address] [place] [address] 0 03/17/2022 16:25:18 03/18/2022 14:25:58 Cellulitis of face 899683100 L03.211 He agreed to try med as ordered, 02-10-2022 also he is advised to go to ER any time for any concern , he agreed. according to record that he has been tried butabital since july 2021 and nothing had happened before. Advised to go to ER any time for any concern. he agreed. stopped all other medication s.. He wants to go back to work tomorrow due to finacial need. [id number] [facility] [address] [place] [address] 06/14/2022 17:08:47 06/15/2022 11:55:13 Pain of bilateral knee regions 5518646137 13439 M25.561 M25.562 discussed with patient, will try med as ordered. willing to return to work tomorrow. Lesion of skin of face 8892976563 06 L98.9 His dermatolog y did not take his health insurance , will refer to another dermatolog y as long as his insurance been accepted . [id number] MD Jaron Gomez (Adult Med) [address] [place] [address] 08/08/2022 15:38:37 08/09/2022 10:16:36 Headache 41465279 R51.9 Discussed with patient , he agreed for med as ordered. Low back pain 222761911 M54.50 Wants muscle relaxant , Chronic ab dominal pain 353679493 R10.9 Unable to contact GI referral. will re-summit. Pain of bi lateral knee regions 0862142848 59047 M25.561 M25.562 discussed with patient, will try med as ordered. willing to return to work tomorrow. Lesion of skin of face 5258479573 06 L98.9 His dermatolog y did not take his health insurance , will refer to another dermatolog y as long as his insurance been accepted . [id number] ELIZABETH FARRAR [facility] [address] [place] [address] 08/17/2022 11:18:07 08/22/2022 11:40:12 Epigastric pain 46222944 R10.13 trial daily PPI. if no improvemen t consider EGD.CBC and CMP in ER visit note 08/10/2022. [id number] Baldev Mckeon MD [facility] (Adult Med) [address] [place] [address] 09/06/2022 12:01:08 09/07/2022 12:22:27 Biceps tendinitis 917724621 M75.21 Discussed with patient, agreed for returning work tomorrow, also x Ray, PE and muscle relaxant. Health Concerns Section Related Observation LastModified by Organization Detai ls LastModified Time None Recorded Concern Status LastModified by Organization Details LastModified Time None Recorded Advance Directives Directive N: Payers Encounter Date Sequence Insurance Name Policy Number Policy Lowe Covered Member ID Lowe Member ID Guarantor Name 03/17/2022 1 [facility] ON OR AFTER 05/06/21 (MEDICAID REPLACEMENT - HMO) Doug Villalta [id number] Doug Villalta 06/14/2022 1 [facility] ON OR AFTER 05/06/21 (MEDICAID REPLACEMENT - HMO) Doug Villalta [id number] Doug Villalta 08/08/2022 1 [facility] ON OR AFTER 05/06/21 (MEDICAID REPLACEMENT - HMO) Doug Villalta [id number] Doug Villalta 08/17/2022 1 [facility] ON OR AFTER 05/06/21 (MEDICAID REPLACEMENT - HMO) Doug Villalta [id number] Doug Villalta 09/06/2022 1 [facility] ON OR AFTER 05/06/21 (MEDICAID REPLACEMENT - HMO) Doug Villalta [id number] Doug Villalta Notes Date Note Type Note Provider [...] has appointment with specialist on 04-15-2022 in [facility]. NKDA. Baldev Mckeon MD Attn: Accounting,[address] [facility], [place], [address], [facility] 03/17/2022 17:49:46 06/14/2022 text/html Office visit, NK DA. knees pain for 2 days , works as a maintenance , no fever, and abdomenal cramp yesterday , he missed work yesterday. No injury. Baldev Mckeon MD Attn: Accounting,[address] [facility], [place], [address], [facility] 06/14/2022 18:02:06 08/08/2022 text/html Office. !. Headache. 2. Lower back pain. 3. Wants to return to work tomorrow. 4. Chronic abdominal cramp waiting GI referral 5. Rashes of face, [id number] dermatology referral. Baldev Mckeon MD Attn: Accounting,[address] [facility], [place], [address], [facility] 08/09/2022 18:18:19 08/17/2022 text/html Patient presents today [...] showed enteritis. Vomiting and diarrhea has resolved. ELIZABETH FARRAR [address] [place], [address], [facility] 08/17/2022 11:45:27 09/06/2022 text/html Office visit, NK DA. 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 Baldev Mckeon MD Attn: Accounting,[address], [place], [address], [facility] 09/06/2022 17:38:39
--- OUTSIDE RECORDS SUMMARY | 2025-03-01 20:56 | XMS_ITS | Clinical Summary ---
Author Organization [facility] Address [address] [facility] [place] [address] Care Team Providers Care Dean Of Boys Name Role Phone Georgina Liu MD Primary Care Provider Source Comments [facility],non-owned Affiliates and Associated Physician Practices is amultiple site organization consisting of ambulatory clinics and hospital sitesin [place], [place], [place] and [place]. This disclosure is being madepursuant to the Care Everywhere program and may not contain all information available regarding this patient. Last updated 18.[facility] Allergies No known active allergies Medications * Be aware that medications may not be up to date on this document. Alwaysverify current medications with the patient. cephALEXin (KEFLEX) 500 MG capsule Take 1 Cap by mouth 4 times daily 28 Cap 0 06/23/2016 Active traMADol (ULTRAM) 50 MG tablet Take 1 Tab by mouth every 4 hours as needed for Pain 20 Tab 0 06/23/2016 Active naproxen (NAPROSYN) 500 MG tablet Take 1 Tab by mouth 2 times daily as needed for Pain 20 Tab 0 06/23/2016 Active Immunizations Immunization Administration Dates Next Due TD (ADULT), 5 LF TETANUS TOXOID, ADSORBED, PF Social History Tobacco Use Types Packs/Day Years Used Date Smoking Tobacco: Never Assessed Sex and Gender Information Value Date Recorded Sex Assigned at Not on file Legal Sex Male 5:27 AM CDT Gender Identity Not on file Sexual Orientation Not on file Last Filed Vital Signs Vital Sign Reading Time Taken Comments Blood Pressure 174/97 06/23/2016 6:30 AM CDT Pulse 87 06/23/2016 6:30 AM CDT Temperature 36.7 C (98 F) 06/23/2016 5:35 AM CDT Respiratory Rate 16 06/23/2016 5:35 AM CDT Oxygen Saturation 99% 06/23/2016 6:30 AM CDT Inhaled Oxygen Concentration - - Weight 96.2 kg (212 lb) 06/23/2016 5:35 AM CDT Height 177.8 cm (5' 10 ) 06/23/2016 5:35 AM CDT Body Mass Index 30.42 06/23/2016 5:35 AM CDT Plan of Treatment Health Maintenance Due Date Last Done Comments HIV SCREENING 2012 HEPATITIS C SCREENING 07/30/2015 HEPATITIS B VACCINE (1 of 3 - 19+ 3-dose series) 2016 COVID-19 VACCINE ( - 2023-2 5 season) 2024 DEPRESSION SCREENING 11/06/2024 INFLUENZA VACCINE (Season Ended) 2025 DTAP/TDAP/TD VACCINES (2 - T d or Tdap) 06/23/2026 06/23/2016 ZOSTER VACCINE (1 of 2) 2047 HIB VACCINE Aged Out No longer eligi ble based on patient's age to complete this topic HPV VACCINE Aged Out No longer eligi ble based on patient's age to complete this topic MENINGOCOCCAL (Group B) VACC INE SHARED DECISION-MAKING Aged Out No longer eligibl e based on patient's age to complete this topic MENINGOCOCCAL GROUPS A/C/Y/W VACCINE Aged Out No longer eligible b ased on patient's age to complete this topic PNEUMOCOCCAL VACCINE Aged Out No long er eligible based on patient's age to complete this topic Insurance [facility] WC [employer]YOR GENERIC Care Teams Dean Of Boys Relationship Specialty Start Date End Date Georgina Liu MD PCP - General Family Medicine 06/23/16
--- OUTSIDE RECORDS SUMMARY | 2025-03-01 20:56 | XMS_ITS | Continuity of Care Document ---
Author Organization [facility] Address [address] [place] [address] [address] [place] [address] Phone Care Team Providers Care Electronics Warfare Technician Name Role Phone Laurence Roth Unavailable Unavailable Advance Directives Directive Yes / No Effective Date File Name No Information Encounters Encounter Description Practice Location Reason(s) For Visit Diagnoses Date Provider Providers Copied on Encounter [facility], [id number] [place] [address] [address], [place], [place], [id number], [place] tel:[phone] SEC [facility] No Information 2 0-200 2 Ira Dang. [address] [facility] , [address], [place], [address], [place]. tel:[phone] Family History Family Member Type Diagnosis Age At Onset No Information Payers Payer name Insurance type Covered alliance party ID Authoriza tion(s) Medicaid [facility] [id number] Social History Type Description Quantity Date Captured [...]
[2025-03-01 21:11] VITALS: BP 147/85; PULSE 91; RESP 16; TEMP 36.8; O2SAT 100
--- NOTE | 2025-03-02 01:51 | PC.NURSE ---
Patient called for room assignment, no answer and not seen in waiting room. Patient marked as left without being seen, triaged.
--- OUTSIDE RECORDS SUMMARY | 2025-03-02 01:52 | XMS_ITS | Clinical Summary ---
Author Organization [facility] Address [address] [place] [address] Care Team Providers Care Supervisor Framing Mill Name Role Phone Georgina Liu MD Primary Care Provider [phone] Source Comments [employer] [facility],non-owned Affiliates and Associated Physician Practices is amultiple site organization consisting of ambulatory clinics and hospital sitesin [place], [place], [place] and [place]. This disclosure is being madepursuant to the Care Everywhere program and may not contain all information available regarding this patient. Last updated 18.[employer] Allergies No known active allergies Medications * [...] patient's age to complete this topic Insurance [facility] WC PAYOR GENERIC Care Teams Supervisor Framing Mill Relationship Specialty Start Date End Date Georgina Liu MD PCP - General Family Medicine 06/23/16
--- OUTSIDE RECORDS SUMMARY | 2025-03-02 01:52 | XMS_ITS | Continuity of Care Document ---
Author Organization formerly [facility] Address [address] [place] [address] [address] [place] [address] Phone Care Team Providers Care Bag Presser Name Role Phone Laurence Roth Unavailable Unavailable Advance Directives Directive Yes / No Effective Date File Name No Information Encounters Encounter Description Practice Location Reason(s) For Visit Diagnoses Date Provider Providers Copied on Encounter [facility], [address] [place] [address] [address], [place], [place], [id number], [place] tel:[phone] SEC [facility] No Information 0-200 2 Ira Dang. [address] [facility] , [address], [place], [address], [place]. tel:[phone] Family History Family Member Type Diagnosis Age At Onset No Information Payers Payer name Insurance type Covered alliance party ID Authoriza tion(s) Medicaid [facility] [id number] Social History Type Description Quantity Date Captured [...]
== END 2025-03-02 01:53 | disposition left against medical advice (07) ==
LOC: ANHED 03-02 01:50
PROVIDERS: PCP Internal Medicine
DX: R21 Rash and other nonspecific skin eruption (principal)
CPT/HCPCS: 99199